=== PATIENT | male | born 1960 ===

== ENCOUNTER 2018-06-30 18:28 | Emergency (ER) | payer SELFPAY ==
[~2018-06-30] VITALS: Ht 167.6 cm; Wt 77.3 kg
[2018-06-30 18:31] VITALS: Ht 167.6 cm; Wt 77.3 kg
[2018-06-30] MEDS ORDERED: LISINOPRIL-HCT1 EAC8 PO (18:32)
[2018-06-30] MEDS ORDERED: GLUCOPHAGE1000 MG PO (18:33)
[2018-06-30] MEDS ORDERED: MOBIC7.5 MG PO (18:33)
[2018-06-30] MEDS ORDERED: KLOR-CON 1010 MEQ PO (18:34)
[2018-06-30] MEDS ORDERED: LIPITOR40 MG PO (18:34)
[2018-06-30] MEDS ORDERED: VOLTAREN75 MG PO (21:11)
[2018-06-30 21:41] VITALS: BP 142/78
== END 2018-06-30 21:41 | disposition home or self-care (01) ==
LOC: D.ER 18:28
DX: S89.82XA Other specified injuries of left lower leg, initial encounter (principal); W18.30XA Fall on same level, unspecified, initial encounter; Y93.89 Activity, other specified; Y92.019 Unspecified place in single-family (private) house as the place of occurrence of the external cause